=== PATIENT | male | born 1940 | race Caucasian/White ===

== ENCOUNTER 2018-10-19 11:05 | Outpatient (CLI) | payer MEDICARE, OTHER ==
[~2018-10-19] VITALS: Ht 175.3 cm; Wt 108.2 kg
--- NOTE | ~2018-10-19 | HEMODYNAMI ---
PATIENT:ESTER SHANNON MEDICAL RECORD: [id number] : 38 LOCATION:[facility] ADMISSION DATE: 10/19/18 Generatedon:10/19/201815:03 Patient name: ESTER SHANNON Patient #: [id number] SSN: : 1940 Date of study: 10/19/2018 Page: Of Hemodynamic Procedure Report Patient Data Patient Demographics Procedure consent was obtained First Name: ESTER Gender: Male Last Name: MIRTHA : 1940 Middle Initial: D Age: 77 year(s) Patient #: [id number] Race: Unknown Additional ID: [id number] Contact details [address]: [address] [place] [address] State: [place] City: [place] Zip code: [address] Past Medical History Allergies: No known allergies Admission Admission Data Admission Date: 10/19/2018 Admission Time: 11:05 Procedure Procedure Types Cath Procedure Diagnostic Procedure LHC LHC w/Coronaries FFR/IVUS Intra-Coronary IVUS Initial Sedation Charges Moderate Sedation up to 15 minutes PCI Procedure Coronary Stent Coronary Stent Initial Procedure Description Procedure Date Procedure Date: 10/19/2018 Procedure Start Time: 14:42 Procedure End Time: 15:02 Procedure Staff Name Function Juan Villafana MD Performing Physician Kenneth Mason RT Food Service Team Member Gale Owusu RT Monitor Angel Heath RN Nurse Khanh Thorpe RT Scrub Procedure Data Cath Procedure Fluoroscopy Diagnostic fluoroscopy Total fluoroscopy Time: 4.8 time: 4.8 min min Diagnostic fluoroscopy Total fluoroscopy dose: 752 dose: 752 mGy mGy Contrast Material Contrast Material Type Amount (ml) Isovue 300 158 Entry Location Entry Primary Successful Side Size Upsize Upsize Entry Closure Succes sful Closure Location (Fr) 1 (Fr) 2 (Fr) Remarks Device Remarks Femoral Right 5 Fr 6 Fr Exoseal artery Short Estimated blood loss: 10 ml Diagnostic catheters Device Type Used For End Catheter Placement MULTIPACK Pigtail 5 Fr LV Angiography catheter MULTIPACK JL 4.0 5Fr Left Coronary catheter Angiography MULTIPACK 3DRC 5Fr Internal mammary catheter arteriography MULTIPACK 3DRC 5Fr Right Coronary catheter Angiography DIAGNOSTIC AR2 MOD 5 Fr SVG Angiography catheter ([id number]) Procedure Complications No complications Procedure Medications Medication Administration Route Dosage 0.9% NaCl I.V. 100 ml/hr Oxygen etCO2 Nasal cannula 2 l/min Heparin Flush Bag added to field 2 bags (1000units/500ml NS) Lidocaine 2% added to field 20 Versed I.V. 2 mg Fentanyl I.V. 100 mcg Heparin Bolus I.V. 4000 units Hemodynamics Rest Heart Rate: 69 (bpm) Snapshots Pre Cath Intra NCS Post Cath Vital Signs Time Heart Resp SPO2 etCO2 NIBP (mmHg) Rhythm Pain Sedation Rate (ipm) (%) (mmHg) Status Level (bpm) 14:20:59 67 34 99 4.5 124/73(94) NSR 0 (11) 10(A) , No pain 14:25:19 70 19 98 0 130/72(87) NSR 0 (11) 10(A) , No pain 14:29:40 72 14 97 0 135/79(94) NSR 0 (11) 10(A) , No pain 14:34:02 73 14 97 10.7 137/75(96) NSR 0 (11) 10(A) , No pain 14:38:14 76 13 97 3.8 127/76(101) NSR 0 (11) 10(A) , No pain 14:49:23 78 13 97 4.5 136/77(98) NSR 0 (11) 10(A) , No pain 14:53:48 78 30 98 4.5 151/79(120) NSR 0 (11) 9(A) , No pain 14:58:16 79 20 98 9.1 148/83(121) NSR 0 (11) 9(A) , No pain 15:02:36 76 30 98 0.7 142/72(106) NSR 0 (11) 9(A) , No pain Medications Time Medication Route Dose Verified Delivered Reason Notes Effectiveness by by 14:22:17 0.9% NaCl I.V. 100 Angel Angel Per physician ml/hr Kumar Heath RN RN 14:22:26 Oxygen etCO2 2 Angel Angel for low 02 sats Nasal l/min Lorigan Lorigan cannula RN RN 14:22:36 Heparin Flush added 2 Angel Angel used for Bag to bags Kumar Heath procedure (1000units/500ml field RN RN NS) 14:22:47 Lidocaine 2% added 20ml Angel Angel for local to vial Kumar Heath anesthetic field RN RN 14:37:04 Versed I.V. 2 mg Angel Angel for sedation Kumar Heath RN RN 14:37:15 Fentanyl I.V. 100 Angel Angel for sedation mcg Kumar Heath RN RN 14:54:42 Heparin Bolus I.V. 4000 Angel Angel for units Kumar Heath anticoagulation RN flow coordinator Log Time Note 13:54:19 Time tracking: Regular hours (M-F 7:00 - 5:00) 13:54:26 Plan of Care:Hemodynamics will remain stable., Cardiac rhythm will remain stable., Comfort level will be maintained., Respiratory function will remain adequate., Patient/ family verbilizes understanding of procedure., Procedure tolerated without complication., Recovers from procedure without complications.. 13:58:35 Kenneth Mason RT(R) sent for patient. Start room use. 14:12:42 Patient received from ED to CCL 3 Alert and oriented. Tansferred to table in Supine position. 14:12:43 Warm blankets applied, and richie hugger turned on for patient comfort. 14:12:44 Correct patient and procedure confirmed by team. 14:12:45 Signed procedure consent form obtained from patient. 14:12:47 Full Disclosure recording started 14:13:09 ECG and BP/O2 sat monitors applied to patient. 14:13:15 Use device set Femoral Dx 14:13:16 ACIST Syringe (34215) opened to sterile field. 14:13:17 Bag Decanter (2001S) opened to sterile field. 14:13:17 Medline Cath Pack ([id number]) opened to sterile field. 14:13:17 DIAGNOSTIC WIRE .035 260cm J wire (313202) opened to sterile field. 14:13:18 ACIST Hand Control (38919) opened to sterile field. 14:13:19 ACIST Manifold (45891) opened to sterile field. 14:13:19 DIAGNOSTIC Multipack 5Fr catheter set (DT5730) opened to sterile field. 14:13:20 Tegaderm 4 x 4 (1626W) opened to sterile field. 14:13:21 SHEATH 5FR Franklin (SNR718) opened to sterile field. 14:19:52 Vital chart was started 14:22:17 0.9% NaCl 100 ml/hr I.V. was administered by Angel Heath RN; Per physician; 14:22:26 Oxygen 2 l/min etCO2 Nasal cannula was administered by Angel Heath RN; for low 02 sats; 14:22:26 Rhythm: 1st degree heart block 14:22:35 H&P Date Dictated: 10/19/2018 ER History on chart., New H&P dictated by physician.. 14:22:36 Heparin Flush Bag (1000units/500ml NS) 2 bags added to field was administered by Angel Heath RN; used for procedure; 14:22:36 Pre-procedure instructions explained to patient. 14:22:36 Pre-op teaching completed and patient verbalized understanding. 14:22:39 Family in waiting room. 14:22:41 Patient NPO since Midnight. 14:22:45 Patient allergic to No known allergies 14:22:47 Lidocaine 2% 20ml vial added to field was administered by Angel Heath RN; for local anesthetic; 14:23:00 Is the patient allergic to Iodine/contrast media? No. 14:23:02 Is patient on blood thinner?Yes 14:23:04 ACC The patient was administered the following blood thiners within the last 24 hours: ACCPlavix 14:23:07 Patient diabetic? Yes. 14:23:08 If diabetic: On Metformin? Yes 14:23:10 If on Metformin: Last Dose? 10/19/2018 14:23:13 Previous problem with sedation/anesthesia? No ? 14:23:14 Snore? Yes 14:23:15 Sleep apnea? No 14:23:15 Deviated septum? No 14:23:16 Opens mouth fully? Yes 14:23:17 Sticks out tongue? Yes 14:23:18 Airway obstruction? No ? 14:23:20 Dentures? No ? 14:23:25 Pre procedure: right dorsailis pedis pulse 2+ Normal; easily identifiable; not easily obliterated 14:23:29 Patient pain scale 0/10 ?. 14:23:37 IV patent on arrival in left forearm with 0.9% NaCl at [facility]. 14::39 Lab results completed and on chart. 14::44 Right groin area was prepped with chlora-prep and draped in sterile fashion 14::45 Alarms reviewed by R. N. 14::46 Sharps counted by scrub and verified by R.N. 14::41 Baseline sample Acquired. 14:32:52 Zero performed for pressure channel P1 14:34:30 Final Timeout: patient, procedure, and site verified with staff and physician. All members of the team are in agreement. 14::32 Right groin site verified by team. 14:34:35 Fire Safety Assessment: A--An alcohol-based skin anteseptic being used preoperatively., C--Open oxygen or nitrous oxide is being used., D--An ESU, laser, or fiber-optic light is being used. 14::39 Physical assessment completed. ASA score P 2 - A patient with mild systemic disease as per Juan Villafana MD. 14::42 Sedation plan: IV Moderate Sedation Medication:Versed, Fentanyl 14:37:04 Versed 2 mg I.V. was administered by Angel Heath RN; for sedation; 14:37:15 Fentanyl 100 mcg I.V. was administered by Angel Heath RN; for sedation; 14:42:01 Procedure started. 14:42:04 Local anesthetic to right femoral artery with Lidocaine 2% by Juan Villafana MD.INITIAL ACCESS ONLY 14:42:41 A 5 Fr sheath was inserted into the Right Femoral artery 14:42:49 A MULTIPACK Pigtail 5 Fr catheter was advanced over the wire and used for LV Angiography. 14:43:12 LV gram done using RANDOLPH 14:43:15 Injector settings: Ml/sec: 10, Volume: 20, 14:43:24 EF : 50 % 14:43:26 Catheter removed. 14:43:31 A MULTIPACK JL 4.0 5Fr catheter was advanced over the wire and used for Left Coronary Angiography. 14:44:42 Catheter removed. 14:44:52 A MULTIPACK 3DRC 5Fr catheter was advanced over the wire and used for Internal mammary arteriography. TO LAD 14:47:04 A MULTIPACK 3DRC 5Fr catheter was advanced over the wire and used for Right Coronary Angiography. 14:47:07 Catheter removed. 14:48:24 A DIAGNOSTIC AR2 MOD 5 Fr catheter ([id number]) was advanced over the wire and used for SVG Angiography. TO ? OCCLUDED? 14:48:38 Catheter removed. 14:48:43 Use device set TAUTH PCI 14:48:44 SHEATH 6FR Franklin (ERL648) opened to sterile field. 14:48:50 CHOICE PT Extra Support 182cm wire ([id number]) opened to sterile field. 14:48:54 INFLATOR Merit BasixCompak (UL9373) opened to sterile field. 14:49:02 GUIDE 6FR HS II SH catheter ([id number]) opened to sterile field. 14:49:48 [place] IVUS Catheter (40310C) opened to sterile field. 14:49:56 Sheath upsized to a 6 Fr Short. 14:50:05 6 Fr HS II SH guide catheter was inserted over the wire 14:50:41 CHOICE PT ES wire advanced. 14:51:02 IVUS catheter advanced over wire. 14:51:23 IVUS pass to RCA lesion performed. 14:52:56 IVUS catheter removed over wire. 14:54:42 Heparin Bolus 4000 units I.V. was administered by Angel Heath RN; for anticoagulation; 14:55:19 Inflate balloon Inflation number: 1 A INTEGRITY RX 4.0 x 22 stent ([id number]) was prepped and advanced across the Prox RCA, then inflated to 17 MICHAEL for 0:04 (min:sec). 14:55:35 Stent catheter was removed intact over wire. 14:55:35 Wire removed. 14:55:36 Guide catheter removed. 14:56:10 6 Fr XBLAD 4 guide catheter was inserted over the wire 14:57:01 LCA angiography performed. 14:57:29 Guide catheter removed. 14:57:35 Sheath removed intact; hemostasis achieved with Exoseal to the Right Femoral artery. 14:57:36 Procedure ended.(Physican Out) 14:57:44 Fluoroscopy time 04.80 minutes. 14:57:49 Fluoroscopy dose: 752 mGy 14:57:49 Flurop Dose total: 752 14:57:52 Contrast amount:Isovue 300 158ml. 14:57:53 Sharps counted by scrub and verified by R.N. 14:57:54 Insertion/operative site no bleeding no hematoma. 14:57:57 Post-op/insertion site Right Femoral artery dressed using a 4 x 4 and Tegaderm. 14:58:00 Post right femoral artery:stable, clean and dry 14:58:03 Post Procedure Pulses reassessed and unchanged 14:58:06 Post-procedure physical assessment completed. ASA score P 2 - A patient with mild systemic disease as per Juan Villafana MD. 14:58:08 Post procedure rhythm: unchanged. 14:58:13 Estimated blood loss: 10 ml 14:58:14 Post procedure instruction explained to patient.Patient verbalizes understanding. 14:58:15 Patient needs reinforcement of post procedure teaching. 14:59:05 Procedure type changed to Cath procedure, Diagnostic procedure, LHC, LHC w/Coronaries, FFR/IVUS, Intra-Coronary IVUS Initial, Sedation Charges, Moderate Sedation up to 15 minutes, PCI procedure, Coronary Stent, Coronary Stent Initial 14:59:09 Procedure Complication : No complications 14:59:12 See physician's report for complete and final results. 14:59:19 EXOSEAL 6Fr (EX600) opened to sterile field. 15:01:49 GUIDE 6FR XBLAD 4.0 catheter ([id number]) opened to sterile field. 15:02:42 Procedure and supply charges have been captured, reviewed, submitted and are correct. 15:02:44 Vital chart was stopped 15:02:46 Report given to Pre/Post Procedure Room. 15:02:49 Patient transfered to Pre/Post Procedure Room with Stretcher. 15:02:50 Procedure ended. 15:02:50 Full Disclosure recording stopped 15:02:54 End room use (Document Last) Intervention Summary Intervention Notes Time ActionType Lesion and Equipment Action# Pressure Duration Attributes Used 14:55:19 Inflate Prox RCA INTEGRITY RX 1 17 00:04 balloon 4.0 x 22 stent ([id number]) Device Usage Item Name Manufacture Quantity Catalog Number Hospital Part Current Mini [facility] Lot# / Charge Number Stock Stock Serial# Code ACIST Acist 1 33060 834067 047099 346334 20 Syringe Medical (78074) Systems Inc Bag Decanter Microtek 1 420928 32551 631940 5 () Medical Inc. Medline Cath Medline 1 [id number] 826810 46122 360431 5 Pack ([id number]) DIAGNOSTIC [facility] [place] 1 645744 251265 709678 762894 30 WIRE .035 260cm J wire (510953) ACIST Hand Acist 1 56420 340442 760915 403893 5 Control Medical (07321) Systems Inc ACIST Acist 1 40194 825052 464906 996014 5 Manifold Medical (69800) Systems Inc DIAGNOSTIC Cardinal 1 ZB0573 265745 92353 319879 30 Multipack Health 5Fr catheter set (MI3497) Tegaderm 4 x 3M 1 1626W 368878 809011 688100 5 4 (1626W) SHEATH 5FR Terumo 1 HSG093 815455 010262 340527 5 Franklin (BWP372) MULTIPACK Cardinal 1 471716 5 Pigtail 5 Fr Health catheter MULTIPACK JL Cardinal 1 864021 5 4.0 5Fr Health catheter MULTIPACK Cardinal 1 593650 5 3DRC 5Fr Health catheter DIAGNOSTIC Cardinal 1 212071F 918894 242182 268428 20 AR2 MOD 5 Fr Health catheter (737570D) SHEATH 6FR Terumo 1 KPL700 868373 738677 670163 40 Franklin (GTF679) CHOICE PT [place] 1 [id number] 727606 389411 489699 5 Extra Scientific Support 182cm wire ([id number]) INFLATOR Merit 1 WR1785 378243 764727 110328 15 [facility] [employer] BasixCompak (FA9400) GUIDE 6FR HS Medtronic 1 [id number] 680151 92516 954596 1 II SH catheter ([id number]) [place] 1 53925C 890389 178182 811751 8 [place] IVUS Catheter (18967I) INTEGRITY RX Medtronic 1 [id number] 052487 420223 895096 5 [id number] 4.0 x 22 stent ([id number]) EXOSEAL 6Fr Cardinal 1 EX600 519579 415818 519894 10 (EX600) Health GUIDE 6FR Cardinal 1 [id number] 467304 781488 514707 3 XBLAD 4.0 Health catheter ([id number]) Signature Audit [place] Stage Time Signature Unsigned Intra-Procedure 10/19/2018 Gale 3:03:45 PM Counts RT(R) Signatures Monitor : Gale Signature : Counts RT Date : Time : [address] [place] [address]
[2018-10-19 11:08] VITALS: Ht 175.3 cm; Wt 108.2 kg
[2018-10-19] MEDS ORDERED: TRILIPIX135 MG PO (11:12)
[2018-10-19] MEDS ORDERED: CELEBREX200 MG PO (11:13)
[2018-10-19] MEDS ORDERED: VIBRAMYCIN 100100 MG PO (11:13)
[2018-10-19] MEDS ORDERED: CO Q-10100 MG PO (11:13)
[2018-10-19] MEDS ORDERED: METOPROLOL TART50 MG PO (11:14)
[2018-10-19] MEDS ORDERED: CRESTOR20 MG PO (11:14)
[2018-10-19] MEDS ORDERED: ONGLYZA5 MG PO (11:14)
[2018-10-19] MEDS ORDERED: GLUCOPHAGE1000 MG PO (11:15)
[2018-10-19] MEDS ORDERED: ASPIRIN81 MG PO (11:15)
[2018-10-19 11:31] LABS: BASOPHILS 0.3 % (0-2); EOSINOPHILS 1.4 % (0-7); HEMATOCRIT 43.9 % (42.0-54.0); HEMOGLOBIN 14.7 g/dL (13.5-17.5); IMMATURE GRANULOCYTES 0.5 % (0-5); LYMPHOCYTES 27.9 % (15-50); MCH 30.9 pg (26.0-34.0); MCHC 33.5 g/dL (31.0-37.0); MCV 92.2 fL (80.0-100.0); MEAN PLATELET VOLUME 11.3 fL (7.4-10.4); MONOCYTES 9.3 % (2-11); NEUTROPHILS 60.6 % (40-80); PLATELET COUNT 185 10x3/uL (130-400); RBC 4.76 10x6/uL (4.20-6.10); RDW 13.1 % (11.5-14.5); WBC 6.5 10x3/uL (4.8-10.8)
[2018-10-19 11:43] LABS: ALBUMIN 4.1 g/dL (3.4-5.0); ALKALINE PHOSPHATASE 39 U/L (46-116); ALT (SGPT) 28 U/L (10-68); BILIRUBIN - TOTAL 0.72 mg/dL (0.2-1.3); CALC OSMOLALITY 287 mosm/kg (275-300); CALCIUM 9.4 mg/dL (8.5-10.1); CARBON DIOXIDE 28.7 mmol/L (21.0-32.0); CHLORIDE - SERUM 103 mmol/L (98-107); CREATININE - SERUM 1.3 mg/dL (0.6-1.3); GLUCOSE 225 mg/dL (74-106); POTASSIUM - SERUM 5.1 mmol/L (3.5-5.1); PROTEIN - SERUM 7.3 g/dL (6.4-8.2); SODIUM 140 mmol/L (136-145); UREA NITROGEN 19 mg/dL (7-18); eGFR NON AFRICAN AMERICAN 57 mL/min (90-120)
[2018-10-19 11:55] LABS: CKMB 1.9 U/L (0.0-3.6); CREATINE KINASE 127 UL (21-232); TROPONIN-I < 0.017 ng/mL (0.000-0.060)
[2018-10-19 14:09] VITALS: BP 123/68
--- NOTE | 2018-10-19 15:30 | NUR ---
RIGHT GROIN DRESSING C/D/I. NO S/S OF HEMATOMA NOTED. RIGHT PEDAL PULSE PALPABLE.
--- NOTE | 2018-10-19 16:00 | NUR ---
RIGHT GROIN DRESSING C/D/I. NO S/S OF HEMATOMA NOTED. VSS. PT TOLERATING WATER AND ICE CHIPS.
[2018-10-19] MEDS ORDERED: ASPIRIN EC325 M1 PO (16:06)
[2018-10-19] MEDS ORDERED: PLAVIX75 MG PO (16:09)
--- NOTE | 2018-10-19 16:30 | NUR ---
RIGHT GROIN DRESSING C/D/I. NO S/S OF HEMATOMA NOTED. VSS. PT RESTING COMFORTABLY.
--- NOTE | 2018-10-19 17:30 | NUR ---
RIGHT GROIN DRESSING C/D/I. NO S/S OF HEMATOMA NOTED. VSS.
--- NOTE | 2018-10-19 17:59 | NUR ---
HEAD OF BED INC TO 30 DEGRESS. PT TOLERATED WELL. VSS. RIGHT GROIN DRESSING C/D/I. NO S/S OF HEMATOMA NOTED.
--- NOTE | 2018-10-19 18:04 | NUR ---
PT VOIDED APPROX 450CC OF CLEAR YELLOW URINE IN URINAL.
--- NOTE | 2018-10-19 18:23 | NUR ---
LEFT AC PIV D/C'D WITH CATH TIP INTACT. PT TOLERATED WELL. PT UNHOOKED AND INSTRUCTED TO GET DRESSED. AMBULATED TO THE RESTROOM AND VOIDED WITHOUT DIFFICULTY.
--- NOTE | 2018-10-19 18:33 | NUR ---
DISCUSSED DISCHARGE INSTRUCTIONS WITH PT AND PT'S FAMILY. THEY VOICED UNDERSTANDING.
--- NOTE | 2018-10-19 18:50 | NUR ---
PT TAKEN OUT TO VEHICLE BY WHEELCHAIR. NO S/S OF DISTRESS NOTED. ALL BELONGINGS IN HAND.
--- NOTE | 2018-10-23 10:45 | OP ---
PATIENT NAME: ESTER SHANNON MEDICAL RECORD: [id number] :38 LOCATION:D.CAT ADMISSION DATE: SURGEON: CAIO MCDERMOTT MD DATE OF OPERATION: 10/19/2018 PROCEDURES: 1. PTCA stent RCA. 2. Left heart catheterization. 3. Selective coronary angiography. 4. Vein graft angiography. 5. CARCAMO angiography. 6. Intravascular ultrasound. 7. Left ventriculogram. INDICATION: Angina and coronary artery disease. DESCRIPTION OF PROCEDURE: After informed consent was obtained and after detailed description of risks, benefits as well as alternative therapies, the patient elected to proceed with angiogram and angioplasty. The right femoral area was prepped and draped in normal sterile fashion. Right femoral artery was cannulated via modified Seldinger technique with placement of 6-Uzbek sheath. All catheters exchanged through this sheath. FINDINGS: Left ventriculogram was performed in standard 30-degree RANDOLPH view, reveals good cardiac wall motion throughout all segments. Overall ejection fraction estimated at 50%. SELECTIVE CORONARY ANGIOGRAPHY: 1. Left main is with no significant angiographic disease. 2. Left anterior descending has 90% stenosis in the mid vessel. 3. CARCAMO to the LAD is widely patent. Distal LAD is widely patent. 4. Left circumflex has moderate irregularities, but no flow-limiting stenosis. 5. Right coronary has 80% stenosis proximally confirmed by intravascular ultrasound. 6. Vein graft to the right coronary is closed. PTCA STENT OF THE RIGHT CORONARY: The stent used was a 4.0 x 22-mm Integrity. Result was 0% residual stenosis. OVERALL IMPRESSION: Successful percutaneous transluminal coronary angioplasty stent of the right coronary artery going from 80% initial stenosis to 0% residual. TRANSINT:[id number] Voice Confirmation ID: [id number] DOCUMENT ID: [id number] CAIO MCDERMOTT MD at 1045 CC: [id number] DICTATION DATE: 10/19/18 1503 PROJECT DEVELOPMENT ENGINEER: 10/19/18 1533 [facility] [place] CLI 10/19/18 [place] [id number]
--- NOTE | 2018-10-23 10:45 | CN ---
PATIENT NAME:ESTER SHANNON MEDICAL RECORD: [id number] : 38 LOCATION:[facility] ADMIT DATE: ACCOUNT: [id number] CONSULTING PHYSICIAN: CAIO MCDERMOTT MD REFERRING PHYSICIAN: CAIO MCDERMOTT MD DATE OF CONSULTATION: 10/19/2018 ADMITTING DIAGNOSES: 1. Unstable angina. 2. Coronary artery disease. 3. Coronary artery bypass graft surgery, 2-vessel, 2010. 4. Hypertension. 5. Hyperlipidemia. HISTORY OF PRESENT ILLNESS: This is a gentleman with a past history of coronary artery disease, coronary bypass graft surgery in 2010, who has been having chest pain yesterday and today. He continues to have the pain. It started radiating down his left arm and getting worse. He presents to the Emergency Room. PHYSICAL EXAMINATION: GENERAL APPEARANCE: Well-nourished, well-developed, appears stated age. Level of distress, comfortable. PSYCHIATRIC: Mental status, alert, normal affect. Orientation, oriented to time, place and person. EYES: Lids and conjunctiva, noninjected. No discharge, no pallor. ENT: Lips, teeth, gums, normal dentition. Oropharynx, no cyanosis, no pallor. NECK: Carotid arteries, bilateral normal upstroke, no bruits, no thrills. JUGULAR VEINS: No jugular venous pressure or distention. CERVICAL LYMPH NODES: Nontender, nonenlarged. THYROID: Not enlarged. Nontender. No nodules. LUNGS: Respiratory effort, unlabored. CHEST: Normal curvature. No thoracic deformity. No chest wall tenderness. Percussion, resonant. Auscultation, clear. No wheezes, no rales, no rhonchi. CARDIOVASCULAR: Precordial exam, nondisplaced. No heaves or pericardial thrills. Rate and rhythm, regular. Heart sounds, normal S1, normal S2. No S3, no gallop, no rub. Systolic murmur, not heard. Diastolic murmur, not heard. EXTREMITIES: No cyanosis, no edema. Peripheral pulses, full and equal in all extremities, except as noted. No bruits appreciated. ABDOMEN: Soft, nondistended. Normal aorta. No bruit. Nontender. No masses. Liver, nontender, no hepatomegaly. Spleen, nontender, no splenomegaly. MUSCULOSKELETAL: No joint tenderness. No joint swelling. No erythema. NEUROLOGICAL: Normal gait, normal strength, normal tone. SKIN: Warm and dry. OVERALL IMPRESSION: Unstable angina. The patient with a past history of coronary artery disease and coronary artery bypass graft surgery. We will proceed with coronary angiography. Further care depends upon findings of the angiography. TRANSINT:[id number] Voice Confirmation ID: [id number] DOCUMENT ID: [id number] CONSULT REPORT [id number] ESTER SHANNON, CAIO DE LA FUENTE at 1045 CC: [id number] DICTATION DATE: 10/19/18 1250 LAPELER: 10/19/18 1320 [facility] CLI 10/19/18 [facility] [address] [place] [address]
== END 2018-10-19 18:50 | disposition home or self-care (01) ==
LOC: D.CATH 11:05 → D.ER 11:05 → EDSTATUS 12:34 → D.CATH 18:50
PROVIDERS: Emergency Medicine
DX: I25.119 Atherosclerotic heart disease of native coronary artery with unspecified angina pectoris (principal); I25.710 Atherosclerosis of autologous vein coronary artery bypass graft(s) with unstable angina pectoris; Z01.812 Encounter for preprocedural laboratory examination

== ENCOUNTER → 2019-05-15 11:48 | Outpatient (CLI) | payer MEDICARE, OTHER ==
[2018-10-19 11:08] VITALS: BMI 35.2
[~2019-05-15 11:48] MED LIST: ASPIRIN EC325 M1 PO; ASPIRIN81 MG PO; CELEBREX200 MG PO; CO Q-10100 MG PO; CRESTOR20 MG PO; GLUCOPHAGE1000 MG PO; METOPROLOL TART50 MG PO; ONGLYZA5 MG PO; PLAVIX75 MG PO; TRILIPIX135 MG PO; VIBRAMYCIN 100100 MG PO
== END | disposition home or self-care (01) ==
LOC: D.HCCARDIO 11:30
PROVIDERS: ATTEND Internal Medicine Cardiovascular Disease
DX: I25.10 Atherosclerotic heart disease of native coronary artery without angina pectoris (principal)